=== PATIENT | male | born 1950 | race Caucasian/White ===

== ENCOUNTER 2017-06-12 15:29 | Emergency (ER) | payer BC ==
[2017-06-12 16:16] VITALS: BP 111/78
[2017-06-12] MEDS ORDERED: Sodium Chloride 0.9% 1,000 ML IV ONE (17:05)
[2017-06-12] MEDS ORDERED: Sodium Chloride 0.9% 10 ML Syringe FLUSH PRN (17:06)
[2017-06-12] MEDS ORDERED: Ketorolac 30 MG/ML SDV IVPUSH ONE (17:06)
--- NOTE | 2017-06-12 18:36 | CT ---
CT abdomen and pelvis Technique: Multiple axial sections were obtained from above the dome of the diaphragm inferiorly through the pubic symphysis. Intravenous and oral contrast not utilized. Study has been performed as a ureteral stone protocol. Findings: Markedly dilated left renal pelvis is seen with dilated renal calyces. There is a small calcification seen within the left renal pelvis which does not appear to be obstructing and measures approximately 3.8 mm. The dilatation presumably represents a severe UPJ obstruction on a congenital or developmental basis. No ureteral dilatation or ureteral stone is seen. No abnormal calcifications are seen within the kidneys. Slight atelectasis is incidentally noted within both lung bases. Noncontrast appearance of the liver is within normal limits. Spleen size is normal. Adrenal glands show no nodule. Pancreas is within normal limits. Aorta shows atherosclerotic change which continues into the iliac vessels. No retroperitoneal adenopathy is seen. No aneurysm is seen. Pancreas is within normal limits. No mesenteric abnormalities are seen. No findings of appendicitis are seen. Diverticuli are seen within the sigmoid colon without diverticulitis. No pelvic mass or adenopathy is seen. No free fluid or inflammatory change is noted. Impression: 1. UPJ obstruction (on a congenital or developmental basis) causing prominent dilatation of the renal pelvis and calyces. Given the amount of dilatation, urologic referral could be obtained for consideration of pyeloplasty. 2. Small calcification within the dilated left renal pelvis which does not appear to be obstructing. 3. Other incidental findings as noted above. Diagnostic code #3
--- NOTE | 2017-06-12 20:24 | EDM.PDOC ---
ED HPI GENERAL MEDICAL PROBLEM - General Chief Complaint: Flank Pain Stated Complaint: FLANK PAIN Time Seen by Provider: 06/12/17 16:20 Source of Information: Reports: Patient History Limitations: Reports: No Limitations - History of Present Illness INITIAL COMMENTS - FREE TEXT/NARRATIVE: 66-year-old male presents for evaluation treatment of left flank pain. Patient reports the pain started this morning while at work. He states that the pain gradually came on. He states that it is in his left-sided his back and radiates into his left flank. He reports associated symptoms of chills. He denies any fevers, nausea, vomiting, dysuria or hematuria. Reports that his last bowel movement was today. Describes the pain as a episodic pain rates it at a 7 or 8 out 10. No treatments prior to arrival in the ER. Patient reported to me, later, he has had this on several different occasions. Has been going on for years. Often resolves with drinking some lemon juice and taking an ibuprofen. Patient states he is healthy with no known medical conditions. He is not on any medications. Left Flank Pain Score (Numeric/FACES): 10 - Related Data Allergies Allergy/AdvReac Type Severity Reaction Status Date / Time No Known Allergies Allergy Verified 06/12/17 16:16 Home Meds: Home Meds . [No Known Home Meds] 06/12/17 [History] Past Medical History Respiratory History: Reports: Asthma Social & Family History - Tobacco Use Smoking Status *Q: Never Smoker - Caffeine Use Caffeine Use: Reports: Coffee - Recreational Drug Use Recreational Drug Use: No ED ROS GENERAL - Review of Systems Review Of Systems: See Below Constitutional: Denies: Fever GI/Abdominal: Denies: Abdominal Pain, Constipation, Diarrhea, Nausea, Vomiting : Reports: Flank Pain (left). Denies: Dysuria, Hematuria Musculoskeletal: Reports: Back Pain ED EXAM, RENAL/ - Physical Exam Exam: See Below Exam Limited By: No Limitations General Appearance: Alert, WD/WN, No Apparent Distress Respiratory/Chest: No Respiratory Distress, Lungs Clear, Normal Breath Sounds Cardiovascular: Normal Peripheral Pulses, Regular Rate, Rhythm, No Murmur Back Exam: CVA Tenderness (L) Neurological: Alert, Oriented Psychiatric: Normal Affect, Normal Mood Skin Exam: Warm, Dry, Normal Color Course - Vital Signs Last Recorded V/S: Last Vital Signs Temp 36.4 C 06/12/17 16:13 Pulse 64 06/12/17 16:13 Resp 16 06/12/17 16:13 BP 111/78 06/12/17 16:13 Pulse Ox 95 06/12/17 16:13 - Orders/Labs/Meds Orders: Active Orders 24 hr Category Date Time Status Peripheral IV Care [RC] . DIRECTED Care 06/12/17 17:06 Active Peripheral IV Insertion Adult [OM.PC] Routine Oth 06/12/17 17:05 Ordered Labs: Laboratory Tests 06/12/17 06/12/17 06/12/17 Range/Units 17:18 17:28 17:28 WBC 12.31 H (4.23-9.07) K/mm3 RBC 5.21 (4.63-6.08) M/mm3 Hgb 15.9 (13.7-17.5) gm/L Hct 46.7 (40.1-51.0) % MCV 89.6 (79.0-92.2) fl MCH 30.5 (25.7-32.2) pg MCHC 34.0 (32.2-35.5) g/dl RDW Std Deviation 44.1 H (35.1-43.9) fL Plt Count 279 (163-337) K/mm3 MPV 10.1 (9.4-12.3) fl Neut % (Auto) 84.5 H (34.0-67.9) % Lymph % (Auto) 8.0 L (21.8-53.1) % [place] % (Auto) 5.8 (5.3-12.2) % Eos % (Auto) 1.5 (0.8-7.0) Baso % (Auto) 0.2 (0.1-1.2) % Neut # (Auto) 10.40 H (1.78-5.38) K/mm3 Lymph # (Auto) 0.99 L (1.32-3.57) K/mm3 [place] # (Auto) 0.71 (0.30-0.82) K/mm3 Eos # (Auto) 0.18 (0.04-0.54) K/mm3 Baso # (Auto) 0.03 (0.01-0.08) K/mm3 Manual Slide Review Abnormal smear Sodium 139 (136-145) mEq/L Potassium 4.3 (3.5-5.1) mEq/L Chloride 103 (98-107) mEq/L Carbon Dioxide 28 (21-32) mEq/L Anion Gap 12.3 (5-15) BUN 21 H (7-18) mg/dL Creatinine 1.3 (0.7-1.3) mg/dL Est Cr Clr Drug Dosing 61.06 mL/min Estimated GFR (MDRD) 55 (>60) mL/min BUN/Creatinine Ratio 16.2 (14-18) Glucose 106 (80-115) mg/dL Calcium 9.9 (8.5-10.1) mg/dL Total Bilirubin 1.2 H (0.2-1.0) mg/dL AST 28 (15-37) U/L ALT 34 (16-63) U/L Alkaline Phosphatase 72 (46-116) U/L C-Reactive Protein 3.2 H* (<1.0) mg/dL Total Protein 7.7 (6.4-8.2) g/dl Albumin 4.4 (3.4-5.0) g/dl Globulin 3.3 gm/dL Albumin/Globulin Ratio 1.3 (1-2) Urine Color Yellow (Yellow) Urine Appearance Clear (Clear) Urine pH 6.0 (5.0-8.0) Ur Specific [place] 1.025 (1.005-1.030) Urine Protein Negative (Negative) Urine Glucose (UA) Negative (Negative) Urine Ketones Negative (Negative) Urine Occult Blood Negative (Negative) Urine Nitrite Negative (Negative) Urine Bilirubin Negative (Negative) Urine Urobilinogen 0.2 (0.2-1.0) Ur Leukocyte Esterase Negative (Negative) Urine RBC 0-5 (0-5) /hpf Urine WBC 0-5 (0-5) /hpf Ur Epithelial Cells 0-5 (0-5) /hpf Urine Bacteria Few (FEW) /hpf Urine Mucus Not seen (FEW) /hpf Meds: Medications Discontinued Medications Generic Name Dose Route Start Last Admin Trade Name Freq PRN Reason Stop Dose Admin Sodium Chloride 1,000 mls @ 999 mls/hr 06/12/17 17:05 06/12/17 17:22 Normal Saline IV 06/12/17 18:05 999 mls/hr ONETIME ONE Administration Ketorolac Tromethamine 30 mg 06/12/17 17:06 06/12/17 17:23 Toradol IVPUSH 06/12/17 17:07 30 mg ONETIME ONE Administration Sodium Chloride 10 ml 06/12/17 17:06 06/12/17 17:22 Saline Flush FLUSH 10 ml ASDIRECTED PRN Administration Keep Vein Open - Radiology Interpretation Free Text/Narrative:: CT of the abdomen and pelvis impression per Dr. Schmid: 1. UPJ obstruction (on a congenital or developmental basis) causing prominent dilation of the renal pelvis and calyces. Given the amount of dilation, urologic referral can be obtained for consideration of a pyeloplasty. 2. Small constipation within the dilated left renal pelvis which does not appear to be obstructing. 3. Other incidental findings. - Re-Assessments/Exams Free Text/Narrative Re-Assessment/Exam: 06/12/17 20:06 Labs returned. white Blood cell count 12.31, hemoglobin 15.9 and platelets 279. CRP 3.2. Sodium 139, potassium 4.3, chloride 103. Anion gap 12.3. Creatinine 1.3. BUN is 21. UA is unremarkable. I discussed the case with Dr. Goetz, urologist at [facility]. He would see him in clinic for a follow-up. Dr. Goetz was able to evaluation the CT scan and noted marked hydronephrosis which correlated with a chronic condition. No emergent condition present tonight. I informed the patient of the labs, CT and my discussion with Dr. Goetz. At this time he is pain free. I will have him follow-up with urology. His pain has been responding to tylenol and motrin. Discharge instructions as documented. Departure - Departure Time of Disposition: 20:21 Disposition: Home, Self-Care 01 Condition: Good Clinical Impression: UPJ (ureteropelvic junction) obstruction - Discharge Information Instructions: Kidney Stones Referrals: PCP,None [Primary Care Provider] - Estiven Goetz MD [Ordering Only Provider] - Forms: ED Department Discharge Additional Instructions: Take [id number] Tylenol or Motrin as needed for pain relief. Make sure you're drinking plenty of fluids. Follow-up with urology. Please call Dr. Goetz's office at [phone] tomorrow to schedule a follow-up. Please return to the ER if your symptoms change or worsen. - My Orders Last 24 Hours: My Active Orders 06/12/17 17:05 Peripheral IV Insertion Adult [OM.PC] Routine 06/12/17 17:06 Peripheral IV Care [RC] . DIRECTED - Assessment/Plan Last 24 Hours: My Active Orders 06/12/17 17:05 Peripheral IV Insertion Adult [OM.PC] Routine 06/12/17 17:06 Peripheral IV Care [RC] . DIRECTED
== END 2017-06-12 20:37 | disposition home or self-care (01) ==
LOC: JD.ED 15:29
DX: N13.5 Crossing vessel and stricture of ureter without hydronephrosis (principal); J45.909 Unspecified asthma, uncomplicated
CPT/HCPCS: 36415; 74176; 80053; 81001; 85025; 86140; 96361; 96374; 99284; J1885; J7040; J7050